=== PATIENT | female | born 1985 | race Caucasian/White ===

== ENCOUNTER 2019-01-28 11:03 | Emergency (ER) | payer OTHER ==
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
[2019-01-28] MEDS ORDERED: IBUPROFEN 400 MG TABLET PO STA (11:42)
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
[2019-01-28] MEDS ORDERED: METHOCARBAMOL 500 MG TABLET PO STA (13:26)
[2019-01-28] MEDS ORDERED: HYDROcod/ACETAM 5/325 MG TABLET PO STA (13:26)
[2019-01-28 13:34] VITALS: BP 128/99
== END 2019-01-28 13:42 | disposition home or self-care (01) ==
LOC: ED 11:03
DX: S06.0X0A Concussion without loss of consciousness, initial encounter (principal); S16.1XXA Strain of muscle, fascia and tendon at neck level, initial encounter; V43.52XA Car driver injured in collision with other type car in traffic accident, initial encounter; F17.200 Nicotine dependence, unspecified, uncomplicated
CPT/HCPCS: 70450; 72125; 99284; A9270

== ENCOUNTER 2019-11-11 08:00 | Outpatient (CLI) | payer OTHER ==
[2019-11-11 18:29] LABS: BASOPHILS # (AUTO) 0.1 10^3/uL (0.0-0.1); EOSINOPHILS # (AUTO) 0.3 10^3/uL (0.0-0.7); EOSINOPHILS % (AUTO) 3.8 %; HGB - HEMOGLOBIN 14.4 g/dL (12.0-16.0); LYMPHOCYTES # (AUTO) 2.3 10^3/uL (1.5-3.5); LYMPHOCYTES % (AUTO) 31.1 %; MEAN CORPUSCULAR HEMOGLOBIN 32.1 pg (27.0-31.0); MEAN CORPUSCULAR HGB CONC 33.3 g/dL (32.0-36.0); MEAN CORPUSCULAR VOLUME 96.4 fL (81.0-99.0); MONOCYTES # (AUTO) 0.4 10^3/uL (0.0-1.0); MONOCYTES % (AUTO) 5.3 %; NEUTROPHILS # (AUTO) 4.3 10^3/uL (1.5-6.6); NEUTROPHILS % (AUTO) 58.5 %; PLT - PLATELET COUNT 302 10^3/uL (130-450); RED BLOOD COUNT 4.49 10^6/uL (4.20-5.40); WHITE BLOOD COUNT 7.3 x10^3/uL (4.8-10.8)
[2019-11-11 18:45] LABS: ALBUMIN 5.1 g/dL (3.2-5.5); ALBUMIN/GLOBULIN RATIO 1.9 (1.0-2.2); BILIRUBIN,TOTAL 0.6 mg/dL (0.2-1.0); CALCIUM 9.3 mg/dL (8.5-10.3); CREATININE 0.5 mg/dL (0.4-1.0); TOTAL PROTEIN 7.8 g/dL (6.7-8.2)
== END 2019-11-11 23:59 | disposition home or self-care (01) ==
LOC: LAB.WCP 08:00
PROVIDERS: ATTEND Nurse Practitioner
DX: R10.9 Unspecified abdominal pain (principal)
CPT/HCPCS: 36415; 80053; 85025

== ENCOUNTER 2019-11-11 17:27 | Emergency (ER) | payer OTHER ==
[2019-11-11 18:10] LABS: BASOPHILS # (AUTO) 0.1 10^3/uL (0.0-0.1); BASOPHILS % (AUTO) 0.8 %; EOSINOPHILS # (AUTO) 0.3 10^3/uL (0.0-0.7); EOSINOPHILS % (AUTO) 3.6 %; HGB - HEMOGLOBIN 15.3 g/dL (12.0-16.0); LYMPHOCYTES # (AUTO) 2.7 10^3/uL (1.5-3.5); LYMPHOCYTES % (AUTO) 34.8 %; MEAN CORPUSCULAR HEMOGLOBIN 33.8 pg (27.0-31.0); MEAN CORPUSCULAR HGB CONC 34.9 g/dL (32.0-36.0); MEAN CORPUSCULAR VOLUME 96.9 fL (81.0-99.0); MEAN PLATELET VOLUME 9.4 fL (7.9-10.8); MONOCYTES # (AUTO) 0.4 10^3/uL (0.0-1.0); MONOCYTES % (AUTO) 4.4 %; NEUTROPHILS # (AUTO) 4.4 10^3/uL (1.5-6.6); PLT - PLATELET COUNT 284 10^3/uL (130-450); RED BLOOD COUNT 4.52 10^6/uL (4.20-5.40); RED CELL DISTRIBUTION WIDTH 12.8 % (12.0-15.0); WHITE BLOOD COUNT 7.9 x10^3/uL (4.8-10.8)
[2019-11-11] MEDS ORDERED: KETOROLAC 30 MG/ML VIAL IM STA (18:20)
[2019-11-11 18:23] LABS: ALBUMIN 5.4 g/dL (3.2-5.5); BILIRUBIN,TOTAL 0.7 mg/dL (0.2-1.0); CALCIUM 9.3 mg/dL (8.5-10.3); CREATININE 0.5 mg/dL (0.4-1.0); TOTAL PROTEIN 8.1 g/dL (6.7-8.2)
--- NOTE | 2019-11-11 18:23 | ED Physician Documentation ---
History of Present Illness - Stated complaint Stated Complaint: ABD PAIN - Chief complaint Chief Complaint: Abd Pain - History obtained from History obtained from: Patient - History of Present Illness Timing: Prior to arrival, How many days ago (7) Pain level max: 7 Pain level now: 7 - Additonal information Additional information: 34-year-old female presents to the emergency department for evaluation of left upper abdominal pain. Patient states that for about 1 week she has had a constant twisting sensation in her up to her at upper abdomen that radiates to her back. She went to an urgent care clinic today where urine was obtained and positive for blood as well as protein. She was advised that if the pain worsened to come to the emergency department. Patient reports that the pain is certainly worse with movement and certain positions. No change in pain with eating. Occasional dysuria. No urinary urgency or frequency. Past surgical history includes partial hysterectomy.Patient is a moderate drinker consuming 1-3 drinks 2-3 times a week.Denies any black or bloody bowel movements. no fevers Review of Systems Constitutional: denies: Fever, Chills Cardiac: denies: Chest pain / pressure, Palpitations Respiratory: denies: Dyspnea, Cough GI: reports: Abdominal Pain. denies: Nausea, Vomiting, Constipation, Hematemesis, Bloody / black stool : reports: Dysuria. 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 HEENT: Tonsil/Adenoidectomy - Present Medications Home Medications: Ambulatory Orders Medication Instructions Recorded Confirmed Dextroamphetamine/Amphetamine 5 mg PO DAILY 10/12/12 10/27/13 [Adderall 10 mg Tablet] Norgestimate-Ethinyl Estradiol 1 each PO DAILY 10/12/12 10/28/13 [Trinessa] HYDROcod/ACETAM 5/325 [Vicodin 1 - 2 ea PO Q6H PRN #15 tablet 10/13/12 10/27/13 5/325] methocarbamoL [Robaxin] 500 mg PO Q6H PRN #25 tablet 01/28/19 Ibuprofen [Ibu] 600 mg PO Q6H PRN #30 tablet 11/11/19 - Allergies Allergies/Adverse Reactions: Allergies Allergy/AdvReac Type Severity Reaction Status Date / Time amoxicillin trihydrate * Allergy Rash Verified 11/11/19 17:35 [From Augmentin] potassium clavulanate * Allergy Rash Verified 11/11/19 17:35 [From Augmentin] - Social History Does the pt smoke?: Yes Smoking Status: Current every day smoker Does the pt drink ETOH?: Yes Does the pt have substance abuse?: Yes PD ED PE EXPANDED - General General: Alert, No acute distress, Well developed/nourished - Neck Neck: Supple w/out meningeal sx - Cardiac Cardiac: Regular Rate, Radial strong equal - Respiratory Respiratory: Clear to ausultation wilfredo Results - Vitals Vitals: Vital Signs - 24 hr 11/11/19 11/11/19 17:35 19:14 Temperature 37.2 C Heart Rate 89 82 Respiratory 17 18 Rate Blood Pressure 143/97 H 144/95 H O2 Saturation 100 100 Oxygen O2 Source Room air - Labs Labs: Laboratory Tests 11/11/19 11/11/19 11/11/19 18:04 18:04 18:20 WBC 7.9 RBC 4.52 Hgb 15.3 Hct 43.8 MCV 96.9 MCH 33.8 H MCHC 34.9 RDW 12.8 Plt Count 284 MPV 9.4 Neut # (Auto) 4.4 Lymph # (Auto) 2.7 [place] # (Auto) 0.4 Eos # (Auto) 0.3 Baso # (Auto) 0.1 Absolute Nucleated RBC 0.00 Nucleated RBC % 0.0 Sodium 139 Potassium 3.4 L Chloride 101 Carbon Dioxide 26 Anion Gap 12.0 BUN 10 Creatinine 0.5 Estimated GFR (MDRD) 140 Glucose 104 H Calcium 9.3 Total Bilirubin 0.7 AST 16 ALT 13 Alkaline Phosphatase 56 Total Protein 8.1 Albumin 5.4 Globulin 2.7 Albumin/Globulin Ratio 2.0 Lipase 43 Urine Color YELLOW Urine Clarity CLEAR Urine pH 6.0 Ur Specific [place] >=1.030 H Urine Protein NEGATIVE Urine Glucose (UA) NEGATIVE Urine Ketones 15 H Urine Occult Blood MODERATE H Urine Nitrite NEGATIVE Urine Bilirubin NEGATIVE Urine Urobilinogen 0.2 (NORMAL) Ur Leukocyte Esterase NEGATIVE Urine RBC 6 Urine WBC 0-3 Ur Squamous Epith Cells MOD Squamous H Urine Bacteria None Seen Urine Mucus Moderate Strands Ur Microscopic Review INDICATED Urine Culture Comments NOT INDICATED Urine HCG, Qual 11/11/19 18:20 WBC RBC Hgb Hct MCV MCH MCHC RDW Plt Count MPV Neut # (Auto) Lymph # (Auto) [place] # (Auto) Eos # (Auto) Baso # (Auto) Absolute Nucleated RBC Nucleated RBC % Sodium Potassium Chloride Carbon Dioxide Anion Gap BUN Creatinine Estimated GFR (MDRD) Glucose Calcium Total Bilirubin AST ALT Alkaline Phosphatase Total Protein Albumin Globulin Albumin/Globulin Ratio Lipase Urine Color Urine Clarity Urine pH Ur Specific [place] >=1.030 H Urine Protein Urine Glucose (UA) Urine Ketones Urine Occult Blood Urine Nitrite Urine Bilirubin Urine Urobilinogen Ur Leukocyte Esterase Urine RBC Urine WBC Ur Squamous Epith Cells Urine Bacteria Urine Mucus Ur Microscopic Review Urine Culture Comments Urine HCG, Qual NEGATIVE - Rads (name of study) CT abdomen/pelvis w/o Radiology: Final report received (A source of flank pain is not seen no hydronephrosis is presentAppears present SPECT a course of the distal left ureter a small pelvic phlebolith seen on CT series 3 image 67. As always the case with a noncontrast study the exact course of the ureter over its entire length is not fully established and if clinical concerns persist follow-up delayed contrast enhanced CT scanning may become necessary.) PD MEDICAL DECISION MAKING - ED course Complexity details: reviewed results, re-evaluated patient, considered differential, d/w patient, d/w family ED course: 34-year-old female presents to the emergency department with 1 week of progressively worsening left flank pain. Patient was noted to have hematuria while at an outside clinic today. She was advised to come to the emergency department. - Her labs are reviewed in full. No leukocytosis or significant electrolyte abnormality. She does have obvious hematuria. However no secondary signs of infection. I doubt urinary tract infection or pyelonephritis. She is afebrile and her vital signs are essentially normal -A noncontrast CT scan was completed in order to potentially identify nephrolithiasis. However CT scanning did not find any obvious source of concern with regard to the urinary system. In reevaluation of the patient her pain was improved with Toradol. Despite not seeing an obvious cause for the hematuria my suspicion for an unidentified nephrolithiasis remains. -I have recommended to patient that she follow-up closely with her primary care provider in the next week. Recommend Tylenol and ibuprofen for analgesia. Emergent return precautions discussed for fevers worsening pain or any other concerns. Departure - Departure Disposition: 01 Home, Self Care Clinical Impression: Acute left flank pain Hematuria Qualifiers: Hematuria type: other microscopic Qualified Code(s): R31.29 - Other microscopic hematuria; R31.2 - Other microscopic hematuria Condition: Stable Instructions: Abdominal Pain Prescriptions: Ibuprofen [Ibu] 600 mg PO Q6H PRN #30 tablet PRN Reason: Pain Comments: I hope that you are feeling better soon. Your labs look essentially normal today with the exception of the blood in your urine. The CT scan did not find any obvious kidney stones or stones in your urinary collecting system. However given the location of the pain I still suspect that you may have a stone too small to see on CAT scan. Please make sure you drink a lot of fluid to help flush your kidneys. Take the ibuprofen with food for pain. Please schedule follow-up with your primary care doctor within the next week. Your blood in the urine should be reevaluated. If this problem is persisting you may need to have a contrast CT scan or referral to a urologist.
[2019-11-11 18:26] LABS: BILIRUBIN,URINE NEGATIVE (NEGATIVE); GLUCOSE, URINE (UA) NEGATIVE (NEGATIVE); KETONES,URINE (UA) 15 mg/dL (NEGATIVE); LEUKOCYTE ESTERASE, URINE NEGATIVE (NEGATIVE); NITRITE,URINE NEGATIVE (NEGATIVE); OCCULT BLOOD,URINE MODERATE (NEGATIVE); PROTEIN,URINE NEGATIVE (NEGATIVE); UROBILINOGEN,URINE 0.2 (NORMAL) E.U./dL (NORMAL)
[2019-11-11 18:30] LABS: CLARITY,URINE CLEAR (CLEAR); HCG UR QUAL NEGATIVE
[2019-11-11 18:33] LABS: BACTERIA,URINE None Seen /HPF (None Seen); RBC,URINE 6 /HPF (0-5); SQUAMOUS EPITHELIAL CELL,UR MOD Squamous (<= Few)
[2019-11-11 18:34] LABS: MUCUS,URINE Moderate Strands
[2019-11-11 19:15] VITALS: BP 144/95
--- NOTE | 2019-11-11 20:03 | CT Report ---
Reason: hemauteia; left flank pain Procedure Date: 11/11/2019 Accession Number: [id number] / [id number] Procedure: CT - Abdomen/Pelvis WO CPT Code: Final Report FULL RESULT: PROCEDURE: Abdomen/Pelvis WO INDICATIONS: hemauteia; left flank pain TECHNIQUE: Noncontrast 5 mm thick sections acquired from the diaphragms to the symphysis. 5 mm coronal and sagittal reformats were then performed. For radiation dose reduction, the following was used: automated exposure control, adjustment of mA and/or kV according to patient size. COMPARISON: None. FINDINGS: Image quality: Excellent. ABDOMEN: Lung bases: Lung bases are clear. Heart size is normal. Solid organs: Liver and spleen are normal in size. Gallbladder Pancreas is normal in contours. No adrenal nodules. Kidneys are normal in size, without hydronephrosis or nephrolithiasis. Peritoneum and bowel: Unenhanced bowel loops demonstrate normal wall thickness and caliber. No free fluid or air. Nodes and vessels: No retroperitoneal or mesenteric adenopathy by size criteria. Aorta and inferior vena cava are normal in caliber. Miscellaneous: No ventral hernias. PELVIS: Genitourinary: Bladder wall thickness is normal. Miscellaneous: No inguinal hernias or adenopathy. There is a pelvic phlebolith near the expected course of the far distal left ureter, but separate. Note is made of a left ovarian cyst that measures up to Bones: No suspicious bony lesions. No vertebral body compression fractures. IMPRESSION: 1. A source of flank pain is not seen. No hydronephrosis is present. In the expected course of the distal left ureter a small pelvic phlebolith appears present seen on CT series 3 image 67. As always the case with a noncontrast study the exact course of the ureter over its entire length is not fully established and if clinical concerns persist follow-up delayed contrast enhanced CT scanning may become necessary. 2. There is absence of appreciable hydronephrosis or perinephric edema on the left, there is are diffuse against a recently passed calculus as cause of reported symptomatology. Reviewed by: Doc Moy MD on 11/11/2019 8:02 PM PDT Approved by: Doc Moy MD on 11/11/2019 8:02 PM PDT Station ID: [id number]
== END 2019-11-11 20:33 | disposition home or self-care (01) ==
LOC: ED 17:27
DX: R10.12 Left upper quadrant pain (principal); R31.29 Other microscopic hematuria; F17.200 Nicotine dependence, unspecified, uncomplicated
CPT/HCPCS: 36415; 74176; 80053; 81001; 81003; 81025; 83690; 85025; 87086; 96372; 99283; 99284

== ENCOUNTER 2019-11-28 09:17 | Outpatient (CLI) | payer OTHER ==
--- NOTE | 2019-11-28 19:19 | Ultrasound Report ---
PROCEDURE: Abdomen Limited INDICATIONS: Left upper quadrant abdominal pain. Evaluation of pancreas, left kidney, and spleen. TECHNIQUE: Real-time focused scanning was performed of the abdomen, with image documentation. COMPARISON: CT abdomen and pelvis without contrast dated 11/11/2019 FINDINGS: Spleen is normal in size. It measures 11.6 x 4.2 x 10.7 cm. Visualized portions of the pancreas are unremarkable. Left kidney measures 10.1 cm. No renal stones or hydronephrosis are identified. IMPRESSION: Unremarkable limited evaluation of the left upper quadrant. Normal spleen size. Unremarkable left kid arnaud. Reviewed by: Marvel Pena MD on 11/28/2019 6:18 PM MATTHEW Approved by: Marvel Pena MD on 11/28/2019 6:18 PM AKCHRISTOPHER Station ID: [id number]
== END 2019-11-28 09:18 | disposition home or self-care (01) ==
LOC: DI 09:17
PROVIDERS: ATTEND Nurse Practitioner Family
DX: R10.12 Left upper quadrant pain (principal)
CPT/HCPCS: 76705

== ENCOUNTER 2020-03-25 08:20 | Outpatient (CLI) | payer OTHER | END 2020-03-25 08:21 | disposition home or self-care (01) | LOC: COV 08:20 | PROVIDERS: ATTEND Family Medicine | DX: R05 Cough (principal); Z20.828 Contact with and (suspected) exposure to other viral communicable diseases; R53.83 Other fatigue; R09.81 Nasal congestion; R19.7 Diarrhea, unspecified; M79.10 Myalgia, unspecified site; J02.9 Acute pharyngitis, unspecified; R06.02 Shortness of breath; R68.83 Chills (without fever); R43.9 Unspecified disturbances of smell and taste ==

== ENCOUNTER 2020-04-21 08:22 | Day surgery (SDC) | payer OTHER ==
[2020-04-21] MEDS ORDERED: LACTATED RINGERS 1,000 ML IV ONE ×2 (08:50→10:23)
[2020-04-21] MEDS ORDERED: fentaNYL 250 MCG/5 ML VIAL IVP ONE (09:52)
[2020-04-21] MEDS ORDERED: MIDAZOLAM 2 MG/2 ML VIAL IVP ONE (09:52)
[2020-04-21 10:45] VITALS: BP 107/76
== END 2020-04-21 08:23 | disposition home or self-care (01) ==
LOC: SDS 08:22
PROVIDERS: ATTEND Surgery
PROC: 0DBP8ZZ Excision of Rectum, Via Natural or Artificial Opening Endoscopic (ICD-10-PCS; principal; 2020-04-21 09:45)
DX: K62.0 Anal polyp (principal); K62.5 Hemorrhage of anus and rectum; K64.8 Other hemorrhoids; K64.4 Residual hemorrhoidal skin tags; F17.210 Nicotine dependence, cigarettes, uncomplicated; Z83.71 Family history of colonic polyps
CPT/HCPCS: 45385; J3010; J7120

== ENCOUNTER 2020-09-28 12:45 | Outpatient (CLI) | payer OTHER | END 2020-09-28 12:46 | disposition home or self-care (01) | LOC: COV 12:45 | PROVIDERS: ATTEND Family Medicine | DX: Z20.822 Contact with and (suspected) exposure to COVID-19 (principal) ==

== ENCOUNTER 2022-04-23 08:00 | Outpatient (CLI) | payer OTHER ==
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
== END 2022-04-23 23:59 | disposition home or self-care (01) ==
LOC: DI.N 08:00
PROVIDERS: ATTEND Registered Nurse
DX: M47.816 Spondylosis without myelopathy or radiculopathy, lumbar region (principal)